=== PATIENT | male | born 1955 | race Hispanic/Latino ===

== ENCOUNTER 2023-04-18 12:52 | Observation (INO) | payer OTHER ==
[2023-04-18] MEDS ORDERED: Aspirin Chewable 81 MG TAB ONE (14:06)
[2023-04-18 14:20] LABS: ALT (SGPT) 13 U/L (8-55); AST (SGOT) 18 U/L (5-34); Albumin 3.6 g/dL (3.4-4.8); Alkaline Phosphatase 86 U/L (40-110); Anion Gap 13 mmol/L (10-20); BUN (Urea Nitrogen) 12 mg/dL (8.4-25.7); Bilirubin, Total 0.9 mg/dL (0.2-1.2); Calc. Creatinine Clearance 0 mL/min (70-130); Calcium 8.6 mg/dL (7.8-10.44); Carbon Dioxide 23 mmol/L (23-31); Chloride 103 mmol/L (98-107); Estimated GFR 72; Globulin 3.6 g/dL (2.4-3.5); Glucose 186 mg/dL (80-115); Lipase 10 U/L (8-78); Potassium 3.9 mmol/L (3.5-5.1); Protein, Total 7.2 g/dL (5.8-8.1); Sodium 135 mmol/L (136-145)
[2023-04-18 14:21] LABS: Troponin I Less than 0.010 ng/mL (< 0.028)
[2023-04-18 14:27] LABS: #Eosinphils 0.1 10x3/uL (0.0-0.5); #Monocytes 0.6 10x3/uL (0.0-1.1); %Basophils 0.4 % (0.0-2.0); %Eosinophils 0.9 % (0.0-6.0); %Lymphocytes 16.3 % (18.0-47.0); %Monocytes 7.1 % (0.0-10.0); Hematocrit 46.8 % (38.8-50.0); Hemoglobin 16.1 g/dL (13.5-17.5); Mean Corpuscular HGB CONC 34.4 g/dL (32.0-36.0); Mean Corpuscular Hemoglobin 29.2 pg (27.0-33.0); Mean Corpuscular Volume 84.9 fl (81.2-95.1); Mean Platelet Volume 11.9 fl (7.4-10.4); Platelet Count 215 10x3/uL (150-450); Red Blood Cell (RBC) Count 5.51 10x6/uL (4.32-5.72)
[2023-04-18] MEDS ORDERED: Morphine 2 MG/ML VIAL SLOW IVP PRN (17:03)
[2023-04-18] MEDS ORDERED: Acetaminophen 325 MG TAB PO PRN (17:03)
[2023-04-18] MEDS ORDERED: Acetaminophen 650 MG Suppository PR PRN (17:03)
[2023-04-18] MEDS ORDERED: Ondansetron ODT 4 MG TAB PO PRN (17:03)
[2023-04-18] MEDS ORDERED: Morphine 4 MG/ML VIAL SLOW IVP PRN (17:03)
[2023-04-18] MEDS ORDERED: Ondansetron PF 4 MG/2 ML Vial IVP PRN (17:03)
[2023-04-18] MEDS ORDERED: HumaLOG 300 UNITS/3 ML VIAL SC PRN (17:09)
[2023-04-18] MEDS ORDERED: Dextrose 50% Abboject 50 ML SYRINGE SLOW IVP PRN (17:09)
[2023-04-18] MEDS ORDERED: Dextrose 5% in Water 1,000 ML IV PRN (17:09)
[2023-04-18] MEDS ORDERED: Glucagon 1 MG/ML KIT IM PRN (17:09)
[2023-04-18 17:10] LABS: Troponin I Less than 0.010 ng/mL (< 0.028)
[2023-04-18] MEDS: Sodium Chloride 0.9% 1,000 ML IV SCH (17:30)
[2023-04-18 18:20] VITALS: BMI 42.7
[2023-04-18 20:40] LABS: Troponin I Less than 0.010 ng/mL (< 0.028)
[2023-04-18] MEDS ORDERED: Pantoprazole 40 MG VIAL ONE (20:49)
[2023-04-18] MEDS ORDERED: Atorvastatin Calcium 40 MG TAB ONE (20:50)
[2023-04-18] MEDS: Atorvastatin Calcium 40 MG TAB PO SCH (20:59)
[2023-04-18] MEDS: Pantoprazole 40 MG VIAL IVP SCH (20:59)
[2023-04-19 05:32] LABS: ALT (SGPT) 15 U/L (8-55); AST (SGOT) 15 U/L (5-34); Albumin 3.1 g/dL (3.4-4.8); Alkaline Phosphatase 76 U/L (40-110); Anion Gap 10 mmol/L (10-20); BUN (Urea Nitrogen) 10 mg/dL (8.4-25.7); Bilirubin, Total 0.6 mg/dL (0.2-1.2); Calc. Creatinine Clearance 119 mL/min (70-130); Calcium 8.2 mg/dL (7.8-10.44); Carbon Dioxide 25 mmol/L (23-31); Chloride 105 mmol/L (98-107); Estimated GFR 79; Globulin 3.5 g/dL (2.4-3.5); Glucose 130 mg/dL (80-115); Potassium 3.5 mmol/L (3.5-5.1); Protein, Total 6.6 g/dL (5.8-8.1); Sodium 136 mmol/L (136-145)
[2023-04-19] MEDS: Aspirin 81 mg Enteric Coated Tablet PO SCH (09:02)
[2023-04-19] MEDS: Enoxaparin 40 MG (0.4 mL) SYRINGE SC SCH (09:02)
[2023-04-19] MEDS: Lisinopril 5 MG TAB PO SCH (09:07)
[2023-04-19 10:29] LABS: Magnesium 1.8 mg/dL (1.6-2.6)
[2023-04-20] MEDS: Pantoprazole 40 MG VIAL IVP SCH (09:05)
[2023-04-20 09:10] VITALS: BP 135/98; TEMP 97.8
[2023-04-20 09:42] LABS: #Eosinphils 0.2 10x3/uL (0.0-0.5); #Monocytes 0.7 10x3/uL (0.0-1.1); #Neutrophils 5.5 10x3/uL (1.5-8.4); %Basophils 0.5 % (0.0-2.0); %Lymphocytes 19.2 % (18.0-47.0); %Monocytes 8.4 % (0.0-10.0); %Neutrophils 69.4 % (40.0-75.0); Hematocrit 43.7 % (38.8-50.0); Hemoglobin 14.5 g/dL (13.5-17.5); Mean Corpuscular HGB CONC 33.2 g/dL (32.0-36.0); Mean Corpuscular Hemoglobin 28.7 pg (27.0-33.0); Mean Corpuscular Volume 86.4 fl (81.2-95.1); Mean Platelet Volume 11.8 fl (7.4-10.4); Platelet Count 212 10x3/uL (150-450); RBC Distribution Width 13.2 % (11.5-14.5); Red Blood Cell (RBC) Count 5.06 10x6/uL (4.32-5.72); White Blood Cell (WBC) Count 7.9 10x3/uL (3.5-10.5)
[2023-04-20 09:56] LABS: Anion Gap 11 mmol/L (10-20); BUN (Urea Nitrogen) 7 mg/dL (8.4-25.7); Calc. Creatinine Clearance 111 mL/min (70-130); Calcium 8.2 mg/dL (7.8-10.44); Carbon Dioxide 24 mmol/L (23-31); Chloride 105 mmol/L (98-107); Estimated GFR 73; Glucose 139 mg/dL (80-115); Potassium 3.7 mmol/L (3.5-5.1); Sodium 136 mmol/L (136-145)
[2023-04-20] MEDS: Potassium Chloride 20 MEQ TAB PO SCH (10:37)
[2023-04-20] MEDS: Magnesium Oxide 400 MG TAB PO SCH (10:37)
== END 2023-04-20 13:11 ==
LOC: CSHERS 12:52 → EEVIPCON 12:52 → SUATTDRO 12:52 → CSHERHOLD 15:43 → CSHTELE 22:12
PROVIDERS: ADMIT Family Medicine; ATTEND Family Medicine
PROC: B246ZZZ Ultrasonography of Right and Left Heart (ICD-10-PCS; principal; 2023-04-18)
DX: R07.9 Chest pain, unspecified (principal); E11.9 Type 2 diabetes mellitus without complications; I10 Essential (primary) hypertension; N40.0 Benign prostatic hyperplasia without lower urinary tract symptoms; M19.90 Unspecified osteoarthritis, unspecified site; E66.9 Obesity, unspecified; R97.20 Elevated prostate specific antigen [PSA]; N17.9 Acute kidney failure, unspecified; Z79.82 Long term (current) use of aspirin; Z87.891 Personal history of nicotine dependence; Z79.899 Other long term (current) drug therapy
CPT/HCPCS: 36415; 36416; 71045; 80048; 80053; 83690; 83735; 84443; 84484; 85025; 93005; 93010; 93306; 94760; 94762; 96372; 96374; 96376; C9113; G0378; J1650; J7050